=== PATIENT | female | born 1955 | race Caucasian/White ===

== ENCOUNTER 2016-11-07 17:44 | Emergency (ER) | payer BC, OTHER | END 2016-11-07 19:54 | disposition home or self-care (01) | LOC: ER 17:44 | DX: R55 Syncope and collapse (principal); I10 Essential (primary) hypertension; Z90.710 Acquired absence of both cervix and uterus; Z79.899 Other long term (current) drug therapy; Z88.0 Allergy status to penicillin | CPT/HCPCS: 36415 ==